=== PATIENT | male | born 1960 | race Caucasian/White ===

== ENCOUNTER 2023-02-16 07:05 | Day surgery (SDC) | payer OTHER ==
[2023-02-11 13:40] VITALS: BP 113/70
[~2023-02-16] VITALS: Ht 188 cm; Wt 77.0 kg
[~2023-02-16 07:05] MED LIST: FLOMAX0.4 MG PO; PULMICORT FLEX90 MCG INH
[2023-02-16 07:28] VITALS: BP 119/74
--- NOTE | 2023-02-16 15:25 | NUR ---
02/16/23 1525 Tianna Louis PT TO PACU SLEEPY, AWAKE OFF AND ON, DENIES PAIN OR NAUSEA. PT MAINTAINS SATS WITHOUT O2.
[2023-02-16 15:40] VITALS: BP 120/81
--- NOTE | 2023-02-16 16:34 | NUR ---
1540: PT RETURNS TO UNIT VIA STRETCHER FROM PACU. AWAKE AND ALERT ON ARRIVAL. VSS, RESP EVEN AND UNLABORED. DENIES PAIN AND NAUSEA AT THIS TIME. SCDS IN PLACE. PT EVANGELIST ORALS AT THIS TIME. ICE WATER PROVIDED. POC DISCUSSED AND PT AGREEABLE AT THIS TIME. NO NEEDS VOICED, CALL LIGHT WITHIN REACH 1620: PT WITH URGE TO VOID. DANGLES AT THE BEDSIDE, EVANGELIST WELL. DENIES DIZZINESS AND SOB. AMBULATES TO BR WITH STEADY GAIT. SUCCESSFUL FIRST POSTOP VOID, 150MLS [place] RED URINE. NO CLOTS VISUALIZED. BACK TO STRETCHER. REPORTS 6/10 PAIN AND REQUESTS RX. ADMINISTERED ORDERED. NO FURTHER NEEDS, CALL LIGHT WITHIN REACH
[2023-02-16 16:52] VITALS: BP 119/79
--- NOTE | 2023-02-16 16:54 | NUR ---
1650: PT AWAKE AND ALERT IN STRETCHER. VSS, RESP EVEN AND UNLABORED. PAIN REMAINS 6/10. DENIES NAUSEA. JELLO AND CRACKERS PROVIDED. SCDS IN PLACE AND IV SALINE LOCKED. NO NEEDS VOICED AT THIS TIME, CALL LIGHT WITHIN REACH
[2023-02-16 17:44] VITALS: BP 121/75
--- NOTE | 2023-02-16 17:45 | NUR ---
1735: PT AWAKE AND ALERT IN STRETCHER. VSS, RESP EVEN AND UNLABORED. REPORTS IMPROVING PAIN LEVEL, /. DENIES NAUSEA. AMBULATES TO WITH STANDBY FROM THIS RN. STEADY GAIT. SUCCESSFUL POSTOP VOID, 400MLS PINK URINE. NO CLOTS VISUALIZED. PT TO DRESS INDEPENDENTLY FOR DC. PRESCRIPTION GIVEN TO AND TO PHARMACY TO HAVE RX FILLED. PT WITHOUT NEEDS, CALL LIGHT WITHIN REACH
--- NOTE | 2023-02-16 18:08 | NUR ---
1755: SL RMOVED WITH CATH TIP INTACT AND PRESSURE APPLIED TO SITE, WNL. DC INSTRUCTIONS PROVIDED AND DISCUSSED. PT VOICES UNDERSTANDING AND DENIES QUESTIONS AND CONCERNS AT THIS TIME 1800: PT WHEELED OFF OF UNIT AT THIS TIME. TRANSFERS INTO VEHICLE INDEPENDENTLY AND APPROPRIATELY. NO PHYSICAL S/S OF DISTRESS AT THIS TIME
--- NOTE | 2023-02-17 14:25 | OR ---
[facility] [address], [place] [address] Signed DATE OF OPERATION: 02/16/2023 SURGEON: Christin Kiser MD PREOPERATIVE DIAGNOSIS: Chronic intermittent flank pain secondary to large 13 mm right renal calculus. POSTOPERATIVE DIAGNOSIS: Chronic intermittent flank pain secondary to large 13 mm right renal calculus. NAMES OF PROCEDURES: 1. Diagnostic cystoscopy with right retrograde pyelogram. 2. Right flexible nephroureteroscopy with laser lithotripsy and basket extraction of stone fragments. 3. Insertion of indwelling right ureteral stent. ANESTHESIA: General. ESTIMATED BLOOD LOSS: Minimal. COMPLICATIONS: None. SPECIMENS: Fragments of right renal calculus sent to the lab for stone analysis. DRAINS: A 6 x variable length double-J ureteral stent inserted into the right collecting system. INDICATIONS FOR PROCEDURE: Mr. Navarro is a very pleasant 62-year-old gentleman with a prior history of nephrolithiasis, who presents today to undergo elective extraction of his 13 mm right renal calculus. He recently presented to me with complaints of a consistent bilateral flank pain with the right-sided pain being worse than the left. He underwent a CT scan, which revealed a 13 mm calculus within the right renal pelvis. There is another smaller stone present on the left side. After discussion of the risks and benefits of surgery, the patient has elected to have his 13 mm right renal calculus extracted electively for treatment of his right-sided flank pain. Electronically Signed By: CHRISTIN KISER MD 02/17/23 1425 PATIENT NAME: PAULINE NAVARRO OPERATIVE REPORT DATE OF : 58 REPORT #: [id number] PHYSICIAN: CHRISTIN KISER MD PCP: NO PRIMARY CARE PHYSICIAN REPORT IS CONFIDENTIAL AND NOT TO BE RELEASED WITHOUT AUTHORIZATION [facility] [address], [place] [address] Signed OPERATIVE FINDINGS: 1. On cystoscopy, there was no evidence of any suspicious masses, lesions, or stones. Bilateral ureteral orifices are in their normal anatomic location and effluxing clear urine. 2. Right retrograde pyelogram reveals a relatively large filling defect within the right renal pelvis. This is consistent with his known stone. Otherwise, there is no evidence of any calyceal blunting or filling defects noted on the right retrograde pyelogram. 3. Flexible nephroscopy reveals a large 13 to 14 mm stone present within the right renal pelvis. There are areas that I could see of irritation within the right renal pelvis that is consistent with the stone rubbing on these areas for extended periods of time. I do not appreciate any other stones within the right kidney. This stone was fragmented using a holmium laser at 8 and 0.8 settings using a 270 micron fiber. The stone fragmented completely with only a small amount of difficulty. 90% of the stone burden was successfully extracted using a Zero tip basket. The remaining 10% was left behind as stone dust. 4. At the end of the procedure, a 6 x variable length double-J ureteral stent was inserted into the right collecting system under direct visualization without difficulty. DESCRIPTION OF PROCEDURE: After informed consent was obtained, the patient was taken back to the operating room. He was transferred [facility] the [facility] to the operating room table, where general anesthesia was induced. He was placed in the dorsal lithotomy position and his genitalia were prepped and draped in a standard sterile fashion. Using a 30-degree lens on a 22.5-Romanian introducer, rigid cystoscope was inserted through his urethra and into his bladder under direct visualization. Panendoscopic views of the bladder were then obtained. Please see the above findings. Attention was turned to the right ureteral orifice. A cone-tipped catheter was used to perform a right retrograde pyelogram. Please see the above findings. I then passed a 0.035 Sensor wire up into the right collecting system and confirmed placement of the wire on fluoroscopy. Over the wire, I passed a 13/15 ureteral access sheath into the right collecting system. Adequate placement of the sheath was confirmed on fluoroscopy. I also repeated a retrograde pyelogram via the sheath to get a better look at the right renal pelvis. I advanced a flexible ureteroscope through the sheath and into the proximal ureter and right collecting system. I did notice a slight curvature to the UPJ, however, it was otherwise widely patent. I immediately noted the 13 mm stone within the right renal pelvis. The stone was fragmented using a holmium laser at 8 and 0.8 settings using a 270 micron fiber. I initially used higher frequency and lower energy to attempt to dust the stone. I was able to dust a solid 75% of the stone. The remaining fragments were extracted under direct visualization using a Zero tip basket. The remaining 10% of the stone was in the form of stone dust and I irrigated as much of this dust as I could from the mid and lower pole calices of the right kidney. When I was satisfied that all the Electronically Signed By: CHRISTIN KISER MD 02/17/23 142 PATIENT NAME: PAULINE NAVARRO OPERATIVE REPORT DATE OF : 58 REPORT #: [id number] PHYSICIAN: CHRISTIN KISER MD PCP: NO PRIMARY CARE PHYSICIAN REPORT IS CONFIDENTIAL AND NOT TO BE RELEASED WITHOUT AUTHORIZATION [place] [phone] Signed significant stone fragments had been extracted from the right renal pelvis, I removed the ureteroscope and then reinserted the Sensor wire through the ureteral access sheath and up into the right kidney. The ureteral access sheath was then removed fully intact. Over the wire, I passed a 6 x variable length double-J ureteral stent into the right collecting system under direct visualization. The stent passed easily and once I pulled the wire, an adequate coil was seen within the upper pole of the right kidney. An adequate coil was also noted on cystoscopy. The patient's bladder was then drained and the cystoscope was removed. The patient's stent was placed with a string attached and the string was secured to the patient's penis. The procedure was then terminated. The patient tolerated the procedure well without any complications. He will now be transferred to the postanesthesia care unit in stable condition. DISPOSITION: I discussed the details of today's procedure with the patient's and answered all of her questions. She was notified that the stone was successfully extracted today and he will need to keep his indwelling ureteral stent in place for at least the next seven days. He may remove the stent on the 23 of February in the late afternoon. He was sent home today with Cipro 500 mg one tablet p.o. b.i.d. for seven days, along with oxycodone 5 mg one tablet p.o. q.6 hours p.r.n. pain, dispense #30. He will be scheduled to return to clinic in 6 to 8 weeks to discuss the results of his stone analysis. MD TROY Morris/BRANDY /[id number] Copies: ~ Electronically Signed By: CHRISTIN KISER MD 02/17/23 1425 PATIENT NAME: PAULINE NAVARRO OPERATIVE REPORT DATE OF : 58 REPORT #: [id number] PHYSICIAN: CHRISTIN KISER MD PCP: NO PRIMARY CARE PHYSICIAN REPORT IS CONFIDENTIAL AND NOT TO BE RELEASED WITHOUT AUTHORIZATION
[2023-02-20 19:53] LABS: CALCULI MASS 193 mg (())
== END 2023-02-16 18:00 | disposition home or self-care (01) ==
LOC: DS 07:05
PROVIDERS: ATTEND Urology
PROC: 0TC08ZZ Extirpation of Matter from Right Kidney, Via Natural or Artificial Opening Endoscopic (ICD-10-PCS; principal; 2023-02-16 10:00)
PROC: 0T768DZ Dilation of Right Ureter with Intraluminal Device, Via Natural or Artificial Opening Endoscopic (ICD-10-PCS; 2023-02-16 10:00)
DX: N20.0 Calculus of kidney (principal); N40.1 Benign prostatic hyperplasia with lower urinary tract symptoms; N13.8 Other obstructive and reflux uropathy; J45.909 Unspecified asthma, uncomplicated; Z79.899 Other long term (current) drug therapy
CPT/HCPCS: 00910; 74450; 82365; C1769; C2617; J0131; J0690; J1100; J1885; J2001; J2405; J2704; J3010; J3475; J3490; J7121; Q9958

== ENCOUNTER 2023-02-20 08:23 | Emergency (ER) | payer OTHER ==
[~2023-02-20] VITALS: Ht 188 cm; Wt 76.7 kg
--- OUTSIDE RECORDS SUMMARY | 2023-02-20 08:44 | XMS ---
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 EBenny VISIT COUNT (12 MO.) 2 [facility] TOTAL 2 NOTE: Visits indicate total known visits. ED/UCC VISIT TRACKING (12 MO.) 02/20/2023 08:25 [facility] [place] TYPE: Emergency COMPLAINT: - R FLANK PAIN 02/18/2023 22:46 [facility] [place] TYPE: Emergency COMPLAINT: - FLANK PAIN INPATIENT VISIT TRACKING (12 MO.) No inpatient visits to display in this time frame [email or web address]
[2023-02-20 08:52] LABS: BASOPHILS 0.4 % (0-2); EOSINOPHILS 4.7 % (0-6); HEMATOCRIT 49.2 % (35.0-50.0); HEMOGLOBIN 16.4 g/dL (12.0-18.0); LYMPHOCYTES 11.5 % (24-44); MCH 32.2 (27-36); MCHC 33.4 g/dl (30-36); MCV 96.3 fl (81-99); MONOCYTES 7.5 % (0-12); NEUTROPHILS 75.9 % (39-80); PLATELET COUNT 237 K/uL (140-440); RBC 5.11 M/ul (4.3-5.7); RDW 13.6 (10.5-15.0)
[2023-02-20] MEDS ORDERED: OXYCODONE HCL5 MG PO ×2 (08:54→13:29)
[2023-02-20] MEDS ORDERED: CIPROFLOXACIN500 MG PO (08:54)
[2023-02-20 09:08] LABS: ALBUMIN 4.1 g/dL (3.4-5.0); ALBUMIN/GLOBULIN RATIO 1.28 (1.1-2.4); ANION GAP 8.2 (7-21); BILIRUBIN, TOTAL 0.9 ng/dL (0.2-1.0); BUN/CREATININE RATIO 15.87 (6.0-28.6); CALCIUM 9.3 mg/dL (8.5-10.1); CREATININE, SERUM 1.26 mg/dL (0.70-1.30); POTASSIUM 4.2 mmol/L (3.5-5.1); PROTEIN, TOTAL 7.3 g/dL (6.4-8.2)
[2023-02-20 10:37] LABS: BILIRUBIN, URINE POSITIVE (negative); BLOOD/HGB, URINE LARGE (Negative); KETONE, URINE NEGATIVE (Negative); LEUK ESTERASE, URINE MODERATE (negative); NITRITE, URINE NEGATIVE (negative); PH, URINE 6.5 (5-7)
[2023-02-20 10:52] LABS: BACTERIA, URINE RARE /hpf (negative); CASTS, URINE NONE SEEN \\lpf; CRYSTALS, URINE NONE SEEN (0-1+); EPITHELIAL CELLS, URINE 0 /lpf (0-1+); RED BLOOD CELLS, URINE >50 /hpf (0-5)
[2023-02-20 10:53] LABS: COLLECTION TYPE, URINE CLEAN CATCH; REFLEX CULTURE, URINE Yes (No)
[2023-02-20 13:37] VITALS: BP 127/80
== END 2023-02-20 13:37 | disposition home or self-care (01) ==
LOC: ED 08:23
PROVIDERS: Emergency Medicine
DX: R10.9 Unspecified abdominal pain (principal); N13.30 Unspecified hydronephrosis; Z96.0 Presence of urogenital implants
CPT/HCPCS: 36415; 74176; 74177; 80053; 81001; 85025; 87088; 96375; 99284-25; A9270; J1170; J1885; J2405; J7030; Q9967

== ENCOUNTER 2023-05-27 13:14 | Emergency (ER) | payer OTHER ==
[~2023-05-27] VITALS: Ht 188 cm; Wt 70.8 kg
[~2023-05-27 13:14] MED LIST changes: +CIPROFLOXACIN500 MG PO; +OXYCODONE HCL5 MG PO
--- OUTSIDE RECORDS SUMMARY | 2023-05-27 13:17 | XMS ---
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 - Patient eloped before treatment completed. - Patient with suicidal and/or homicidal ideations eloped. Details: Patient LWBS CRITERIA MET - Group Notification - PDMP - [facility] - 2 Visits in 30 Days CARE PROVIDERS -Bi- Dentist: Benefits Clerk [facility] PHONE: [phone] -Te- Dentist: Benefits Clerk [facility] PHONE: [phone] BERTHA JUAN Family Medicine: Adult Medicine Current PHONE: [phone] Rolo has no Care Guidelines for this patient. Isiah VISIT COUNT (12 MO.) 3 BA Me[facility] Abigail Fonseca (Teetee Kingsley) TOTAL 4 NOTE: Visits indicate total known visits. ED/UCC VISIT TRACKING (12 MO.) 05/27/2023 13:15 [facility] [place] TYPE: Emergency COMPLAINT: - FLU SYMPTOMS 05/22/2023 16:[address] Abigail Fonseca Teetee Kingsley SHAMIR (Teetee Kingsley) TYPE: Emergency DIAGNOSES: - Influenza due to other identified influenza virus with other respiratory manifestations - Wheezing - cough - Flu Like Symptoms - Shortness of Breath 02/20/2023 08:25 [facility] [place] TYPE: Emergency COMPLAINT: - R FLANK PAIN DIAGNOSES: - Presence of urogenital implants - Unspecified abdominal pain - Unspecified hydronephrosis 02/18/2023 22:46 [facility] [place] TYPE: Emergency COMPLAINT: - FLANK PAIN INPATIENT VISIT TRACKING (12 MO.) No inpatient visits to display in this time frame [email or web address]
[2023-05-27 14:11] LABS: BASOPHILS 0.7 % (0-2); EOSINOPHILS 0.2 % (0-6); HEMOGLOBIN 16.4 g/dL (12.0-18.0); LYMPHOCYTES 17.9 % (24-44); MCH 31.9 (27-36); MCHC 33.5 g/dl (30-36); MCV 95.3 fl (81-99); NEUTROPHILS 72.2 % (39-80); PLATELET COUNT 261 K/uL (140-440); RBC 5.14 M/ul (4.3-5.7)
[2023-05-27 14:27] LABS: ALBUMIN 2.8 g/dL (3.4-5.0); ALBUMIN/GLOBULIN RATIO 0.65 (1.1-2.4); ANION GAP 14.3 (7-21); BILIRUBIN, TOTAL 0.3 ng/dL (0.2-1.0); BUN/CREATININE RATIO 30.25 (6.0-28.6); CALCIUM 8.7 mg/dL (8.5-10.1); CREATININE, SERUM 1.19 mg/dL (0.70-1.30); POTASSIUM 4.3 mmol/L (3.5-5.1); PROTEIN, TOTAL 7.1 g/dL (6.4-8.2)
[2023-05-27 16:08] LABS: BILIRUBIN, URINE NEGATIVE (negative); BLOOD/HGB, URINE NEGATIVE (Negative); KETONE, URINE NEGATIVE (Negative); LEUK ESTERASE, URINE NEGATIVE (negative); NITRITE, URINE NEGATIVE (negative); PH, URINE 5.5 (5-7)
[2023-05-27] MEDS ORDERED: DOXYCYCLINE HY100 MG PO (18:13)
[2023-05-27] MEDS ORDERED: AMOX TR-K CLV1 EAC1 PO (18:13)
[2023-05-27 18:27] VITALS: BP 112/78
== END 2023-05-27 18:25 | disposition home or self-care (01) ==
LOC: ED 13:14
PROVIDERS: Emergency Medicine
DX: J98.4 Other disorders of lung (principal); Z88.5 Allergy status to narcotic agent
CPT/HCPCS: 36415; 71045; 80053; 81003; 85025; 94640; 99285-25; J7030